=== PATIENT | female | born 1945 | race Caucasian/White ===

== ENCOUNTER 2016-10-29 05:56 | Day surgery (SDC) | payer MEDICARE, OTHER ==
[2016-10-29] MEDS ORDERED: Dextrose 5%-0.45% NaCl 1,000 ML IV SCH (06:00)
[2016-10-29] MEDS ORDERED: Sodium Chloride 0.9% 10 ML Syringe FLUSH PRN (06:00)
[2016-10-29] MEDS ORDERED: fentaNYL 100 MCG/2 ML SDV ONE (06:13)
[2016-10-29] MEDS ORDERED: Midazolam 1 MG/ML 2 ML SDV ONE (06:13)
[2016-10-29] MEDS ORDERED: fentaNYL 100 MCG/2 ML SDV IV ONE ×3 (07:07→14:39)
[2016-10-29] MEDS ORDERED: Midazolam 1 MG/ML 2 ML SDV IV ONE ×7 (07:07→14:39)
--- NOTE | 2016-10-29 08:52 | OR ---
DATE: 10/29/2016 PROCEDURE: Total colonoscopy, NBI, and snare polypectomy. INSTRUMENT USED: CF-H180AL Olympus video colonoscope. PREMEDICATIONS: Fentanyl 100 mcg intravenous, Versed 4 mg intravenous. Nasal O2 cannula. The procedure was done under pulse oximetry, BP recording, and management accountant. INDICATION: The patient with alteration in bowel habits and fecal incontinence. Colonoscopic examination is done for detection of any polypoid lesions and removal, endoscopic hemostasis therapy if needed. DESCRIPTION OF PROCEDURE: Initial rectal exam was unremarkable. Rigid anoscopy was normal. The colonoscope was passed with ease. Few diverticula were noted in the distal left colon along with deformity. In the distal descending colon, 1 cm sized benign-appearing sessile polyp was noted, NBI views were obtained, photographs were taken, piecemeal snare polypectomy was done, the tissues were retrieved and sent for histopathology. The scope was passed with ease up to the ileocecal area, photographs were taken of the normal-appearing cecum, identified by landmarks of appendiceal orifice and double-bulged ileocecal folds. No bleeding was noted from any of the visualized areas at the commencement of the examination. No stricture. No vascular ectasia. No large isolated ulcerations seen. No evidence of diffuse inflammatory bowel disease in the form of friability, contact bleeding, or ulcerations. Probing the proximal sides of folds and flexures, using adequate distention and clearing up the stool material, withdrawal of the scope was made, cecum to rectum time over 6 minutes. No bleeding was noted from any of the visualized areas at the completion of examination. IMPRESSION: 1. Diverticulosis. 2. Descending colon polyp. The patient tolerated the procedure well. [facility] /[id number]
[2016-10-29 10:49] VITALS: BP 129/70
== END 2016-10-29 10:02 | disposition home or self-care (01) ==
LOC: DL.ENDO 05:56
PROVIDERS: ATTEND Internal Medicine Gastroenterology
DX: D12.4 Benign neoplasm of descending colon (principal); K57.30 Diverticulosis of large intestine without perforation or abscess without bleeding; R15.9 Full incontinence of feces
CPT/HCPCS: 45385; 88305; J2250; J3010; J7042

== ENCOUNTER 2017-12-27 06:30 | Day surgery (SDC) | payer MEDICARE, OTHER ==
[~2017-12-27 06:30] MED LIST: Dextrose 5%-0.45% NaCl 1,000 ML IV SCH; Midazolam 1 MG/ML 2 ML SDV ONE; Sodium Chloride 0.9% 10 ML Syringe FLUSH PRN; fentaNYL 100 MCG/2 ML SDV ONE
[2017-12-27] MEDS ORDERED: fentaNYL 100 MCG/2 ML SDV IV ONE ×3 (06:31→07:37)
[2017-12-27] MEDS ORDERED: Midazolam 1 MG/ML 2 ML SDV IV ONE ×5 (06:31→07:49)
[2017-12-27] MEDS ORDERED: Dextrose 5%-0.45% NaCl 1,000 ML IV SCH (07:15)
--- NOTE | 2017-12-27 09:04 | OR ---
DATE: 12/27/2017 PROCEDURE: Total colonoscopy. INSTRUMENT USED: CF-H180 AL Olympus video colonoscope. PREMEDICATIONS: Fentanyl 100 mcg intravenous, Versed 3 mg intravenous. O2 cannula and later mask. The procedure was done under pulse oximetry, BP recording, and alarm security or surveillance monitor. INDICATION: The patient with previous colonic sessile polyp removed. Followup colonoscopic examination is done for re-examination of the area and removal of any residual polyp. Endoscopic hemostasis therapy if needed. DESCRIPTION OF PROCEDURE: Initial rectal exam showed some perianal deformity, deep pigmentation of the skin around, as well as external hemorrhoids noted. Rigid anoscopy was normal. The colonoscope was passed with ease up to the ileocecal area. Photographs were taken of the normal-appearing cecum identified by double-bulged ileocecal folds. No bleeding was noted from any of the visualized areas at the commencement of the examination. No stricture. No vascular ectasia. No large isolated ulcerations seen. No evidence of diffuse inflammatory bowel disease in the form of friability, contact bleeding, or ulcerations. No polyp or tumor mass identified. The bowel preparation was found to be adequate. Probing the proximal sides of folds and flexures, using adequate distention and clearing up the stool material, withdrawal of the scope was made. [id number] time over 6 minutes. No bleeding was noted from any of the visualized areas at the completion of examination. IMPRESSION: External hemorrhoids. The patient tolerated the procedure well. [facility] /[id number]
[2017-12-27 11:49] VITALS: BP 150/71
== END 2017-12-27 10:00 | disposition home or self-care (01) ==
LOC: DL.ENDO 06:30
PROVIDERS: ATTEND Internal Medicine Gastroenterology
DX: Z09 Encounter for follow-up examination after completed treatment for conditions other than malignant neoplasm (principal); K64.4 Residual hemorrhoidal skin tags; K62.89 Other specified diseases of anus and rectum; Z87.19 Personal history of other diseases of the digestive system
CPT/HCPCS: 45378; J2250; J3010; J7042